=== PATIENT | male | born 1975 | race Caucasian/White ===

== ENCOUNTER → 2020-05-14 | Outpatient (CLI) | payer OTHER | END | disposition home or self-care (01) | LOC: LABWHC1 09:42 | PROVIDERS: ATTEND Emergency Medicine | DX: Z20.828 Contact with and (suspected) exposure to other viral communicable diseases (principal) | CPT/HCPCS: U0003; C9803 ==

== ENCOUNTER 2025-02-04 11:47 | Inpatient (IN) | payer BC, OTHER ==
--- NOTE | 2025-02-04 12:33 | ED ---
General Adult HPI - General Chief complaint: Psychiatric Symptoms Stated complaint: Petition/ Psych Eval Time Seen by Provider: 02/04/25 12:02 Source: patient, police, RN notes reviewed Mode of arrival: EMS Limitations: altered mental status - History of Present Illness Initial comments: Patient is a 49-year-old male present to the emergency department with concerns with change in mental status. Patient admits to sometimes using cocaine/methamphetamine but states he just uses a little bit. Patient was brought in with police custody. Patient has racing thoughts and is difficult to redirect. Patient has difficulty answering questions. Patient denies any complaints. No fever or recent illness. Patient denies any pain. - Related Data Home Medications Medication Instructions Recorded Confirmed Dextroamphetamine/Amphetamine 30 mg PO DAILY 08/17/14 08/17/14 [Adderall] Enalapril [Vasotec] 1 tab PO DAILY 08/17/14 08/17/14 atenoloL [Tenormin] 25 mg PO DAILY 08/17/14 08/17/14 hydroCHLOROthiazide [Hydrodiuril] 1 tab PO DAILY 08/17/14 08/17/14 Previous Rx's Medication Instructions Recorded HYDROcodone/APAP 5-325MG [[place] 1 each PO Q6HR PRN #6 tab 08/17/14 5-325] Ibuprofen [Motrin] 600 mg PO Q6HR PRN #20 tab 08/17/14 diazePAM [Valium] 5 mg PO BID #6 tab 08/17/14 Allergies Allergy/AdvReac Type Severity Reaction Status Date / Time No Known Allergies Allergy Verified 02/04/25 11:59 Review of Systems ROS Statement: Those systems with pertinent positive or pertinent negative responses have been documented in the HPI. ROS Other: All systems not noted in ROS Statement are negative. Constitutional: Denies: fever Eyes: Denies: eye pain ENT: Denies: ear pain Respiratory: Denies: dyspnea Cardiovascular: Denies: chest pain Neurological: Denies: headache Psychiatric: Reports: as per HPI. Denies: homicidal thoughts, suicidal thoughts Past Medical History Past Medical History: Hypertension History of Any Multi-Drug Resistant Organisms: None Reported Past Surgical History: Hernia Repair, Orthopedic Surgery Additional Past Surgical History / Comment(s): finger Past Psychological History: ADD/ADHD, Bipolar Smoking Status: Current every day smoker Past Alcohol Use History: Rare Past Drug Use History: Methamphetamine General Exam Limitations: no limitations General appearance: alert Head exam: Present: normocephalic, other (Mild soft tissue swelling to the forehead) Eye exam: Present: normal appearance, PERRL, EOMI. Absent: nystagmus Neck exam: Present: normal inspection. Absent: tenderness Respiratory exam: Present: normal lung sounds bilaterally Cardiovascular Exam: Present: regular rate, normal rhythm GI/Abdominal exam: Present: soft. Absent: tenderness Extremities exam: Present: normal inspection, full ROM. Absent: tenderness Neurological exam: Present: alert, CN II-XII intact. Absent: motor sensory deficit Expanded Motor strength exam: RUE: 5, LUE: 5, RLE: 5, LLE: 5 Psychiatric exam: Present: agitated Expanded Focused psych exam: Present: restlessness, flight of ideas Skin exam: Present: normal color Course Vital Signs 02/04/25 02/04/25 02/04/25 11:51 12:46 19:24 Temperature 99.1 F 98.1 F Pulse Rate 127 H 123 H 97 Respiratory 22 Rate Blood Pressure 183/109 O2 Sat by Pulse 98 100 Oximetry Procedures - Restraint - Face to Face Restraint Occurrence 1 Patient's Immediate Situation: Endangers self safety, Endangers others' safety, Endangers staff safety Patient's Reaction to the Intervention: Uncooperative Patient's Medical & Behavioral Condition: Awake, Alert Need to Continue or Terminate Restraint or Seclusion: Continue Face to Face Eval of Restraint Date: 02/04/25 Face to Face Eval of Restraint Time: 12:33 Medical Decision Making - Medical Decision Making Was pt. sent in by a medical professional or institution (, PA, SUPERVISOR [employer], urgent care, hospital, or long term...) When possible be specific @ -No Did you speak to anyone other than the patient for history (EMS, parent, family, police, friend...)? What history was obtained from this source @ -No Did you review nursing and triage notes (agree or disagree)? Why? @ -I reviewed and agree with nursing and triage notes Were old charts reviewed (outside hosp., previous admission, EMS record, old EKG, old radiological studies, urgent care reports/EKG's, long term records)? Report findings @ -No old charts were reviewed Differential Diagnosis (chest pain, altered mental status, abdominal pain women, abdominal pain men, vaginal bleeding, weakness, fever, dyspnea, syncope, headache, dizziness, GI bleed, back pain, seizure, CVA, palpatations, mental health, musculoskeletal)? @ -Differential Mental Health Depression, anxiety, bipolar, psychosis, schizophrenia, borderline personality, situational depression, adjustment disorder, behavioral disorder, brain tumor, malingering, substance abuse, encephalopathy, medication reaction, dementia, hypothyroidism, degenerative neurologic disorder, lupus.... This is not meant to be all-inclusive list EKG interpreted by me (3pts min.). @ -As above X-rays interpreted by me (1pt min.). @ -None done CT interpreted by me (1pt min.). @ -CT brain does not reveal acute abnormality U/S interpreted by me (1pt. min.). @ -None done What testing was considered but not performed or refused? (CT, X-rays, U/S, labs)? Why? @ -None What meds were considered but not given or refused? Why? @ -None Did you discuss the management of the patient with other professionals (professionals i.e. , PA, SUPERVISOR [employer], lab, RT, psych nurse, social media designer, cattle dipper, teacher, ship's officer, rn case mgr)? Give summary @ -Case discussed with psychiatric nurse with plans for psychiatric admission Was smoking cessation discussed for >3mins.? @ -No Was critical care preformed (if so, how long)? @ -No Were there social determinants of health that impacted care today? How? (Homelessness, low income, unemployed, alcoholism, drug addiction, transportation, low edu. Level, literacy, decrease access to med. care, [facility], rehab)? @ -No Was there de-escalation of care discussed even if they declined (Discuss DNR or withdrawal of care, Hospice)? DNR status @ -No What co-morbidities impacted this encounter? (DM, HTN, Smoking, COPD, CAD, Cancer, CVA, ARF, Chemo, Hep., AIDS, mental health diagnosis, sleep apnea, morbid obesity)? @ -None Was patient admitted / discharged? Hospital course, mention meds given and route , prescriptions, significant lab abnormalities, going to OR and other pertinent info. @ -Patient presents with flight of ideas and tico and hyperreligious. Patient seen by mental health services with plans for admission. Positive clinical certificate completed. Undiagnosed new problem with uncertain prognosis? @ -No Drug Therapy requiring intensive monitoring for toxicity (Heparin, Nitro, Ins ulin, Cardizem)? @ -No Were any procedures done? @ -No Diagnosis/symptom? @ -Psychosis Acute, or Chronic, or Acute on Chronic? @ -Acute Uncomplicated (without systemic symptoms) or Complicated (systemic symptoms)? @ -Default Side effects of treatment? @ -No Exacerbation, Progression, or Severe Exacerbation? @ -No Poses a threat to life or bodily function? How? (Chest pain, USA, GA, pneumonia, PE, COPD, DKA, ARF, appy, cholecystitis, CVA, Diverticulitis, Homicidal, Suicidal, threat to staff... and all critical care pts) @ -No - Lab Data Result diagrams: 02/04/25 12:44 02/04/25 12:44 Lab Results 02/04/25 02/04/25 Range/Units 12:44 12:44 WBC 7.51 (4.50-10.00) 10*3/uL RBC 5.10 (4.40-5.60) 10*6/uL Hgb 16.8 (13.0-17.0) g/dL Hct 46.8 (39.6-50.0) % MCV 91.8 (80.0-97.0) fL MCH 32.9 H (27.0-32.0) pg MCHC 35.9 (32.0-37.0) g/dL Plt Count 191 (140-440) 10*3/uL MPV 9.7 (9.5-12.2) fL Immature Gran % (Auto) 0.3 % Neutrophils % 68.0 % Lymphocytes % 22.2 % Monocytes % 5.9 % Eosinophils % 2.8 % Basophils % 0.8 % Immature Gran # 0.02 (0.00-0.04) 10*3/uL Neutrophils # 5.11 (1.80-7.70) 10*3/uL Lymphocytes # 1.67 (0.90-5.00) 10*3/uL Monocytes # 0.44 (0.20-1.00) 10*3/uL Eosinophils # 0.21 (0.04-0.35) 10*3/uL Basophils # 0.06 (0.00-0.10) 10*3/uL Sodium 138 (137-145) mmol/L Potassium 4.0 (3.5-5.1) mmol/L Chloride 98 (98-107) mmol/L Carbon Dioxide 30 (22-30) mmol/L Anion Gap 10 mmol/L BUN 20 (9-20) mg/dL Creatinine 0.84 (0.66-1.25) mg/dL Est GFR (CKD-EPI)AfAm >90 (>60 ml/min/1.73 sqM) Est GFR (CKD-EPI)NonAf >90 (>60 ml/min/1.73 sqM) Glucose 140 H (74-99) mg/dL Calcium 9.6 (8.4-10.2) mg/dL Total Bilirubin 0.6 (0.2-1.3) mg/dL AST 40 (17-59) U/L ALT 23 (4-49) U/L Alkaline Phosphatase 113 (38-126) U/L Total Protein 7.2 (6.3-8.2) g/dL Albumin 4.3 (3.5-5.0) g/dL Serum Alcohol <10 mg/dL Disposition Clinical Impression: Psychosis Disposition: TRANSFER TO PSYCH HOSP/UNIT Is patient prescribed a controlled substance at d/c from ED?: No Referrals: Benjamin Arroyo DO [Primary Care Provider] - 1-2 days Time of Disposition: 19:28
[2025-02-04 12:51] LABS: Basophils # (A) 0.06 10*3/uL (0.00-0.10); Basophils % (A) 0.8 %; Eosinophils # (A) 0.21 10*3/uL (0.04-0.35); Eosinophils % (A) 2.8 %; HCT 46.8 % (39.6-50.0); HGB 16.8 g/dL (13.0-17.0); Lymphocytes # (A) 1.67 10*3/uL (0.90-5.00); Lymphocytes % (A) 22.2 %; MCH 32.9 pg (27.0-32.0); MCHC 35.9 g/dL (32.0-37.0); MCV 91.8 fL (80.0-97.0); Monocytes # (A) 0.44 10*3/uL (0.20-1.00); Monocytes % (A) 5.9 %; Neutrophils # (A) 5.11 10*3/uL (1.80-7.70); Neutrophils % (A) 68.0 %; Platelet Count 191 10*3/uL (140-440); RBC 5.10 10*6/uL (4.40-5.60); RDW 12.2 % (11.5-14.5); WBC 7.51 10*3/uL (4.50-10.00)
[2025-02-04 13:11] LABS: ALT 23 U/L (4-49); AST 40 U/L (17-59); African American GFR (CKD) >90 (>60 ml/min/1.73 sqM); Albumin 4.3 g/dL (3.5-5.0); Alkaline Phosphatase 113 U/L (38-126); Anion Gap 10 mmol/L; Blood Urea Nitrogen 20 mg/dL (9-20); Calcium 9.6 mg/dL (8.4-10.2); Carbon Dioxide 30 mmol/L (22-30); Chloride 98 mmol/L (98-107); Glucose 140 mg/dL (74-99); Non-African American GFR(CKD) >90 (>60 ml/min/1.73 sqM); Potassium 4.0 mmol/L (3.5-5.1); Sodium 138 mmol/L (137-145); Total Protein 7.2 g/dL (6.3-8.2)
--- NOTE | 2025-02-04 13:14 | XR ---
EXAMINATION TYPE: XR chest 1V portable DATE OF EXAM: 02/04/2025 COMPARISON: NONE CLINICAL INDICATION: Male, 49 years old with history of agitation; TECHNIQUE: Single frontal view of the chest is obtained. FINDINGS: There is no focal air space opacity, pleural effusion, or pneumothorax seen. The cardiac silhouette size is within normal limits. The osseous structures are intact. IMPRESSION: No acute process. [facility], Workstation: [id number] 02/04/2025 1:11 PM
[2025-02-04] MEDS: LORazepam 1 MG/0.5 ML VIAL IV STA ×2 (13:30→19:22)
--- NOTE | 2025-02-04 16:01 | CT ---
EXAMINATION TYPE: CT brain wo con DATE OF EXAM: 02/04/2025 3:39 PM COMPARISON: 08/16/2014.. CLINICAL INDICATION: Male, 49 years old with history of altered, altered mental status TECHNIQUE: Brain: Axial CT images of the brain were obtained with coronal and sagittal reformats created and rev iewed. Contrast used: None. Oral contrast used: None. CT DLP: 1229.4 mGycm, Automated exposure control for dose reduction was used. FINDINGS: Brain: Extra-axial spaces: No abnormal extra-axial fluid collections. Ventricular system: Within normal limits Cerebral parenchyma: No acute intraparenchymal hemorrhage or mass effect. The edmond-white junction is well differentiated. Cerebellum: Unremarkable. Mass effect: No evidence of midline shift. Intracranial vasculature: unremarkable Soft tissues: Normal. Calvarium/osseous structures: No depressed skull fracture. Paranasal sinuses and mastoid air cells: Mild scattered paranasal sinus disease. Visualized orbits: Orbital contents are intact. IMPRESSION: No acute intracranial process. [facility], , 02/04/2025 3:59 PM
[2025-02-04] MEDS: NICOTINE 14MG/24HR PATCH TRANSDERM STA (18:58)
[2025-02-04] MEDS: HALOPERIDOL LACTATE 5 MG/ML 1 ML VIAL IM STA (19:23)
[2025-02-04] MEDS ORDERED: LORazepam 1 MG TAB PO PRN (22:11)
[2025-02-04] MEDS ORDERED: MAGNESIUM HYDROXIDE 2,400 MG/30 ML CUP PO PRN (22:11)
[2025-02-04] MEDS ORDERED: ACETAMINOPHEN TAB 325 MG TAB PO PRN (22:11)
[2025-02-04] MEDS ORDERED: LORazepam 1 MG/0.5 ML VIAL IM PRN (22:11)
[2025-02-04] MEDS ORDERED: HALOPERIDOL LACTATE 5 MG/ML 1 ML VIAL IM PRN (22:11)
[2025-02-04] MEDS ORDERED: MAG HYDROX/AL HYDROX/SIMETH 355 ML BOTTLE PO PRN (22:11)
[2025-02-04] MEDS ORDERED: IBUPROFEN 600 MG TAB PO PRN (22:11)
[2025-02-04] MEDS ORDERED: diphenhydrAMINE 50 MG/ML 1 ML VIAL IM PRN (22:13)
[2025-02-05 08:10] LABS: Cholesterol 146.00 mg/dL (0.00-200.00); HDL Cholesterol 45.00 mg/dL (40.00-60.00); LDL Cholesterol,Calculated 84.8 mg/dL (0.0-131.0); Triglycerides 81.20 mg/dL (0.00-149.00); VLDL Calculation 16.24 mg/dL (5.00-40.00)
[2025-02-05] MEDS: NICOTINE 14MG/24HR PATCH TRANSDERM SCH (12:40)
[2025-02-05] MEDS: ARIPiprazole 5 MG TAB PO SCH (12:40)
[2025-02-05 13:00] VITALS: RESP 18
--- NOTE | 2025-02-05 13:25 | P.HP ---
Psychiatric H&P - . H&P Date: 02/05/25 History & Physical: Allergies Allergy/AdvReac Type Severity Reaction Status Date / Time hydromorphone from Dilaudid Allergy Unknown Verified 02/04/25 21:12 Vital Signs Temp 98.1 F 02/04/25 12:46 Pulse 84 02/04/25 23:35 Resp 15 02/04/25 23:35 BP 151/90 02/04/25 23:35 Pulse Ox 98 02/04/25 23:35 FiO2 Intake & Output 02/04/25 02/05/25 02/05/25 18:59 06:59 18:59 Weight 68.039 kg Laboratory Last Values WBC 7.51 10*3/uL (4.50-10.00) 02/04/25 12:44 RBC 5.10 10*6/uL (4.40-5.60) 02/04/25 12:44 Hgb 16.8 g/dL (13.0-17.0) 02/04/25 12:44 Hct 46.8 % (39.6-50.0) 02/04/25 12:44 MCV 91.8 fL (80.0-97.0) 02/04/25 12:44 MCH 32.9 pg (27.0-32.0) H 02/04/25 12:44 MCHC 35.9 g/dL (32.0-37.0) 02/04/25 12:44 Plt Count 191 10*3/uL (140-440) 02/04/25 12:44 MPV 9.7 fL (9.5-12.2) 02/04/25 12:44 Immature Gran % (Auto) 0.3 % 02/04/25 12:44 Neutrophils % 68.0 % 02/04/25 12:44 Lymphocytes % 22.2 % 02/04/25 12:44 Monocytes % 5.9 % 02/04/25 12:44 Eosinophils % 2.8 % 02/04/25 12:44 Basophils % 0.8 % 02/04/25 12:44 Immature Gran # 0.02 10*3/uL (0.00-0.04) 02/04/25 12:44 Neutrophils # 5.11 10*3/uL (1.80-7.70) 02/04/25 12:44 Lymphocytes # 1.67 10*3/uL (0.90-5.00) 02/04/25 12:44 Monocytes # 0.44 10*3/uL (0.20-1.00) 02/04/25 12:44 Eosinophils # 0.21 10*3/uL (0.04-0.35) 02/04/25 12:44 Basophils # 0.06 10*3/uL (0.00-0.10) 02/04/25 12:44 Sodium 138 mmol/L (137-145) 02/04/25 12:44 Potassium 4.0 mmol/L (3.5-5.1) 02/04/25 12:44 Chloride 98 mmol/L (98-107) 02/04/25 12:44 Carbon Dioxide 30 mmol/L (22-30) 02/04/25 12:44 Anion Gap 10 mmol/L 02/04/25 12:44 BUN 20 mg/dL (9-20) 02/04/25 12:44 Creatinine 0.84 mg/dL (0.66-1.25) 02/04/25 12:44 Est GFR (CKD-EPI)AfAm >90 (>60 ml/min/1.73 sqM) 02/04/25 12:44 Est GFR (CKD-EPI)NonAf >90 (>60 ml/min/1.73 sqM) 02/04/25 12:44 Glucose 140 mg/dL (74-99) H 02/04/25 12:[address] Glu mg/dL 120 mg/dL 02/04/25 12:44 Hemoglobin A1c 5.8 % (<=6.0) 02/04/25 12:44 Calcium 9.6 mg/dL (8.4-10.2) 02/04/25 12:44 Total Bilirubin 0.6 mg/dL (0.2-1.3) 02/04/25 12:44 AST 40 U/L (17-59) 02/04/25 12:44 ALT 23 U/L (4-49) 02/04/25 12:44 Alkaline Phosphatase 113 U/L (38-126) 02/04/25 12:44 Total Protein 7.2 g/dL (6.3-8.2) 02/04/25 12:44 Albumin 4.3 g/dL (3.5-5.0) 02/04/25 12:44 Triglycerides 81.20 mg/dL (0.00-149.00) 02/04/25 12:44 Cholesterol 146.00 mg/dL (0.00-200.00) 02/04/25 12:44 LDL Cholesterol, Calc 84.8 mg/dL (0.0-131.0) 02/04/25 12:44 VLDL Cholesterol, Calc 16.24 mg/dL (5.00-40.00) 02/04/25 12:44 HDL Cholesterol 45.00 mg/dL (40.00-60.00) 02/04/25 12:44 Cholesterol/HDL Ratio 3.24 Ratio 02/04/25 12:44 TSH 1.630 UIU/ML (0.350-5.500) 02/04/25 12:44 Serum Alcohol <10 mg/dL 02/04/25 12:44 SARS-CoV-2 (PCR) Not Detected (Not Detectd) 02/04/25 20:40 02/05/25 12:22 IDENTIFYING DATA: Patient is a 49-year-old male, he is he lives with his in a trailer, he has 5 kids, is unemployed HPI: Patient presented to the hospital on a petition filled out by , according to EPS note "Patient presented with PD and petition from related to manic and bizarre behavior. Patient assessed in ER12 from [id number]. Patient observed to be disheveled and unkept, pacing around hospital room, and agreeable to speak to manual writer. Patient appears with fair eye contact, tangential speech, nonsensical with loose associations. Patient talks about going to a republican and states "You know the republican I don't have to tell you about the republican" and "The electrician substation supervisor realized that you've been doing the paperwork wrong wood handler dumped me here I don't know why you guys didn't catch on". Patient requires frequent redirection and cannot follow thought pattern. Patient admits to meth and crack use yesterday. Patient per /petition has history of bipolar disorder and has been noncompliant with treatment and medications. Per petition, patient continues to tell others god told him to hurt people, he believes his employer is having sex parties, and he has been witnessed smoking meth which makes him more paranoid. Also notes patient has been making threats to family and neighbors. Patient denies all symptoms and has poor insight into condition and need for treatment at this time. " Patient was seen today for psychiatric assessment. He appeared to have poor eye contact, was rambling at times illogical loose associations. Patient was endorsing paranoid thoughts about his and also his workplace and was fairly vague about it. States that he has been having trouble at work, spoke about his "talking to other people" and him not trusting her. States that everything she wrote on the petition was alive. Claims that she has been "playing games". Denies any depression or anxiety at this time. Has poor insight and poor judgment. Poor hygiene and grooming. Patient denies any suicidal or homicidal ideations intent or plan. At this time patient denies any auditory or visual hallucinations. Claims that his sleep and appetite are fair at this time. Patient admits to using methamphetamine, was minimizing his use, claims that he also smokes cigarettes and smokes marijuana. PAST PSYCHIATRIC HISTORY: Patient has a history of bipolar disorder. Patient denies being on any psychiatric medications. Patient denies any previous psychiatric hospitalizations. Patient denies any psychiatric outpatient follow- up. Patient denies any history of suicide attempts in the past. PMH: as per ER note ALLERGIES: as per EMR CHEMICAL DEPENDENCY HISTORY: as per HPI FAMILY PSYCHIATRIC/SUBSTANCE USE HISTORY: Claims that his sister has some form of mental illness SOCIAL HISTORY: Patient was born and raised in [facility]. Claims that he completed his GED finished school. Claims that he was arrested went to assisted charged with breaking and entering at the age of 16. MENTAL STATUS EXAM: General Appearance: Patient appears to be thin, several tattoos, short hair, stated age is alert, bizarre at times. Patient appears to have poor hygiene and grooming. Behavior: Patient is seated without any agitated behavior. Bizarre, rambling Speech: Patient's speech is fluent and nonpressured. Rambling, nonsensical at times Mood/Affect: Patient reports their mood is "okay", affect is congruent and constricted. Suicidality/Homicidality: Patient denies having any homicidal ideation intent or plan. Denies any suicidal ideations intent or plan Perceptions: Patient denies any visual hallucinations and denies any auditory hallucinations Though content/process: Minimizing drug use and need to be in the hospital, bizarre disorganized illogical loose associations. Memory and concentration: AOX3, grossly intact for the purposes of this session. Can spell "WORLD" backwards Judgment and insight: Poor STRENGTHS/WEAKNESSES: strength is that patient is resilient. Weakness is that patient has poor judgment and is impulsive INTELLECT: Average IMPRESSIONS: Psychosis unspecified Methamphetamine use disorder Cannabis use disorder History of bipolar disorder Nicotine dependence PLAN: -Patient is admitted under involuntary status to [facility]HU for stabilization of psychiatric symptoms and safety. Patient has not signed adult voluntary form and has not signed medication consent and is placed in patient's chart. A second certification was completed and along with petition will be filed for court. -Medications : Abilify 5 mg daily for mood stabilization/psychosis. Trazodone 50 mg nightly for insomnia/mood. -Ativan and Haldol PRN for agitation/aggression Patient states they do not want rehab and wish to cut back subtance use on their own -Patient was informed of the risks, benefits and side effects of the medications. Patient did not signed med consent form and was placed in chart. Patient was offered medication information and declined it -Internal Medicine consult to perform medical evaluation and physical. -NRT -nicotine patch -SW on board for discharge planning. Encourage patient to participate in groups to work on coping skills. Will await deferral and court date. 02/05/25 13:20
--- NOTE | 2025-02-05 19:06 | P.MDCNMH ---
History of Present Illness H&P Date: 02/05/25 This is a 49-year-old male who presented to the emergency department with police being petitioned for aggressive behavior and having admitted to drug use. Patient on exam is awake, alert and oriented x 3 cooperative with staff and awaiting to see the psychiatrist. Patient denies any chest pain or shortness of breath and admits to using marijuana and reports to smoking approximately 2 packs/day. On exam patient did have nicotine patch on the right arm. Patient denies any significant past medical history other than high blood pressure which he reports he does not take any medication for. In the medical record there is history of ADD/ADHD and bipolar disorder. Patient admits his primary care provider is Dr. Arroyo but he has not seen her in quite some time and does not regularly go to the doctor. Patient did have chest x-ray done which shows no acute process, CT brain shows no acute intracranial process, and basic labs reviewed reveal a white count of 7.51, hemoglobin 16.8, platelets 191, sodium 138, potassium 4.0, BUN 20, creatinine 0.84, hemoglobin A1c is 5.8, cholesterol panel within normal limits, TSH 1.6, alcohol level was less than 10 and COVID testing was negative. Patient was admitted as mentioned previously on petition for psychosis to [facility] for mental health evaluation. REVIEW OF SYSTEMS: CONSTITUTIONAL: No fever, no malaise, no fatigue. HEENT: No recent visual problems or hearing problems. Denied any sore throat. CARDIOVASCULAR: No chest pain, orthopnea, PND, no palpitations, no syncope. PULMONARY: No shortness of breath, no cough, no hemoptysis. GASTROINTESTINAL: No diarrhea, no nausea, no vomiting, no abdominal pain. NEUROLOGICAL: No headaches, no weakness, no numbness. HEMATOLOGICAL: Denies any bleeding or petechiae. GENITOURINARY: Denies any burning micturition, frequency, or urgency. MUSCULOSKELETAL/RHEUMATOLOGICAL: Denies any joint pain, swelling, or any muscle pain. ENDOCRINE: Denies any polyuria or polydipsia. The rest of the 14-point review of systems is negative. PHYSICAL EXAMINATION: GENERAL: The patient is alert and oriented x3, not in any acute distress. Well developed, thin built HEENT: Pupils are round and equally reacting to light. EOMI. No scleral icterus. No conjunctival pallor. Normocephalic, atraumatic. No pharyngeal erythema. No thyromegaly. CARDIOVASCULAR: S1 and S2 present. No murmurs, rubs, or gallops. PULMONARY: Chest is clear to auscultation, no wheezing or crackles. ABDOMEN: Soft, thin, nontender, nondistended, normoactive bowel sounds. No palpable organomegaly. MUSCULOSKELETAL: No joint swelling or deformity. EXTREMITIES: No cyanosis, clubbing, or pedal edema. NEUROLOGICAL: Gross neurological examination did not reveal any focal deficits. SKIN: No rashes. Multiple tattoos noted Assessment: Acute psychosis, on police petition for psychiatric evaluation Continued ongoing nicotine abuse, reports to smoking 2 packs/day History of hypertension, not on medications Noncompliance History of ADD/ADHD/bipolar History of polysubstance abuse including methamphetamine Full code Plan: Patient was petitioned by the police to [address] [facility] [address]. On exam patient is awake, alert and oriented x 3 having conversation with multiple hospital staff in the room awaiting to see psychiatrist Blood pressure remains elevated and will add amlodipine starting at 5 mg and may adjust to 10 mg if blood pressure remains elevated Patient encouraged to attend group therapy sessions and compliance with medication and psychiatry evaluation Encouraged increase activity as tolerated Patient has nicotine patch as patient reports to smoking twice daily, tobacco cessation discussed Thank you kindly for this consultation. Please do not hesitate to contact medicine with questions or concerns The impression and plan of care has been dictated by Keira Carbone, Nurse Practitioner as directed. Dr. Natty MD I have performed a history and examination and MDM of this patient, discussed the same with the dictator, and agree with the dictator's assessment and plan as written ,documented as a scribe. Based on total visit time, I have performed more than 50% of the visit. Past Medical History Past Medical History: Hypertension History of Any Multi-Drug Resistant Organisms: None Reported Past Surgical History: Hernia Repair, Orthopedic Surgery Additional Past Surgical History / Comment(s): finger Past Psychological History: ADD/ADHD, Bipolar Smoking Status: Current every day smoker Past Alcohol Use History: Rare Past Drug Use History: Methamphetamine Medications and Allergies Home Medications Medication Instructions Recorded Confirmed Type No Known Home Medications 02/04/25 02/04/25 History Allergies Allergy/AdvReac Type Severity Reaction Status Date / Time hydromorphone [From Dilaudid] Allergy Unknown Verified 02/04/25 21:12 Physical Exam Vitals: Vital Signs Temp Pulse Pulse Resp BP BP Pulse Ox 02/04/25 23:35 84 15 151/90 98 02/04/25 21:19 74 16 180/85 96 02/04/25 19:24 97 100 02/04/25 12:46 98.1 F 123 H 02/04/25 11:51 99.1 F 127 H 22 183/109 98 Cranial Nerve Examination - Cranial Nerves Cranial Nerve I- Olfactory: Intact Cranial Nerve II- Optic: Intact Cranial Nerve III- Oculomotor: Intact Cranial Nerve IV- Trochlear: Intact Cranial Nerve V- Trigeminal: Intact Cranial Nerve - Abducens: Intact Cranial Nerve VII- Facial: Intact Cranial Nerve VIII- Auditory: Intact Cranial Nerve IX- Glossopharyngeal: Intact Cranial Nerve X- Vagus: Intact Cranial Nerve XI- Accessory: Intact Cranial Nerve XII- Hypoglossal: Intact Results CBC & Chem 7: 02/04/25 12:44 02/04/25 12:44 Labs: Abnormal Lab Results - Last 24 Hours (Table) 02/04/25 02/04/25 Range/Units 12:44 12:44 MCH 32.9 H (27.0-32.0) pg Glucose 140 H (74-99) mg/dL
[2025-02-06] MEDS: PANTOPRAZOLE 40 MG TABLET PO SCH (10:39)
[2025-02-06] MEDS: amLODIPine 5 MG TAB PO SCH (10:39)
--- NOTE | 2025-02-06 11:47 | P.PN ---
Progress Note - Text Progress Note Date: 02/06/25 Interval history: Patient was seen today for psychiatric follow-up. Patient was laying in his bed today, claims that he is "catching up on rest". He did seem a bit calmer today and less hyperverbal and more directable. He was somewhat concrete. Claims that overall he is doing a bit better. Denies any anxiety at this time. States that he slept fairly last night. Not reporting any other side effects at all from the medications. Has not been going to groups mainly isolating. He signed a deferral with his shipping and receiving specialist today. Fair appetite. Denies any auditory or visual hallucinations denies any suicidal or homicidal ideations intent or plan. MENTAL STATUS EXAM: General Appearance: Patient appears to be thin, several tattoos, short hair, stated age is alert, bizarre at times. Patient appears to have mildly improving hygiene and grooming. Behavior: Patient is seated without any agitated behavior. More cooperative today, fairly concrete Speech: Patient's speech is fluent and nonpressured. [place] Mood/Affect: Patient reports their mood is "ok", affect is congruent and constr icted. Suicidality/Homicidality: Patient denies having any homicidal ideation intent or plan. Denies any suicidal ideations intent or plan Perceptions: Patient denies any visual hallucinations and denies any auditory hallucinations Though content/process: More logical today, fairly concrete poverty of content Memory and concentration: AOX3, grossly intact for the purposes of this session Judgment and insight: Poor, improving mildly IMPRESSIONS: Psychosis unspecified Methamphetamine use disorder Cannabis use disorder History of bipolar disorder Nicotine dependence PLAN: -Patient is admitted under involuntary status to MHU for stabilization of psychiatric symptoms and safety. Patient has not signed adult voluntary form and has not signed medication consent and is placed in patient's chart. -Medications : Abilify 5 mg daily for mood stabilization/psychosis. Trazodone 50 mg nightly for insomnia/mood. -Ativan and Haldol PRN for agitation/aggression -NRT -nicotine patch -SW on board for discharge planning. Encourage patient to participate in groups to work on coping skills. Patient signed the deferral with his shipping and receiving specialist on 02/06.
[2025-02-06] MEDS: amLODIPine 5 MG TAB PO STA (12:55)
[2025-02-07] MEDS: amLODIPine 10 MG TAB PO SCH (08:43)
--- NOTE | 2025-02-07 10:52 | P.PN ---
Progress Note - Text Progress Note Date: 02/07/25 Interval history: Patient was seen today for psychiatric follow-up. Patient was seen up near the nurses desk. Appears to have improvement in hygiene and good mood today. He claims that he apologizes for coming in and being "delusional" and states that he has realizing this stuff that he was saying. He appears to be less paranoid today. Continues to speak oddly about the work environment and to how he was pressured in his work and also lost his job. He claims that he turned to "street drugs" after losing his job. That he has been talking with his on the phone regularly. Has not been going to many groups. Claims that he has been sleeping well tolerating medications well. He appeared to be fairly tearful at times during the interaction. Fair appetite. Denies any auditory or visual hallucinations denies any suicidal or homicidal ideations intent or plan. MENTAL STATUS EXAM: General Appearance: Patient appears to be thin, several tattoos, short hair, stated age is alert, more pleasant today. Patient appears to have mildly improving hygiene and grooming. Behavior: Patient is seated without any agitated behavior. More cooperative today, fairly concrete Speech: Patient's speech is fluent and nonpressured. Mood/Affect: Patient reports their mood is "a bit better", affect is congruent and tearful Suicidality/Homicidality: Patient denies having any homicidal ideation intent or plan. Denies any suicidal ideations intent or plan Perceptions: Patient denies any visual hallucinations and denies any auditory hallucinations Though content/process: More logical today, fairly concrete poverty of content Memory and concentration: AOX3, grossly intact for the purposes of this session Judgment and insight: Poor, improving mildly IMPRESSIONS: Psychosis unspecified Methamphetamine use disorder Cannabis use disorder History of bipolar disorder Nicotine dependence PLAN: -Patient is admitted under involuntary status to MHU for stabilization of psychiatric symptoms and safety. Patient has not signed adult voluntary form and has not signed medication consent and is placed in patient's chart. -Medications : Increase Abilify 7.5 mg daily for mood stabilization/psychosis. Trazodone 50 mg nightly for insomnia/mood. Added Zoloft 25 mg nightly for mood/anxiety -Ativan and Haldol PRN for agitation/aggression -NRT -nicotine patch -SW on board for discharge planning. Encourage patient to participate in groups to work on coping skills. Patient signed the deferral with his instructional assistant on 02/06. Hopeful for discharge tomorrow versus Wednesday if patient is improving. He is declining rehab at this time.
[2025-02-07] MEDS: SERTRALINE 25 MG TAB PO SCH (20:17)
[2025-02-08] MEDS: ARIPiprazole 15 MG TAB PO SCH (09:35)
[2025-02-08 09:38] VITALS: PULSE 112; TEMP 97.7
--- NOTE | 2025-02-08 11:28 | P.DS ---
Providers Date of admission: 02/04/25 22:08 Expected date of discharge: 02/08/25 Attending physician: Adiel Kate MD Consults: 02/05/25 20:30 Consult Physician Routine Consulting Provider: [facility] Hospitalists Consult Reason/Comments: History and Physical, New Admission Do you want consulting provider notified?: Yes Primary care physician: Benjamin Arroyo - Discharge Diagnosis(es) (1) Unspecified psychosis Current Visit: Yes Status: Acute Priority: High (2) Methamphetamine use disorder, moderate Current Visit: Yes Status: Acute Priority: High (3) Cannabis use disorder Current Visit: Yes Status: Acute Priority: Medium (4) Nicotine dependence Current Visit: Yes Status: Acute Priority: Low (5) History of bipolar disorder Current Visit: Yes Status: Acute Priority: Medium Hospital Course: Admission HPI: Admission note was completed by freelance writer"Patient is a 49-year-old male, he is he lives with his in a trailer, he has 5 kids, is unemployed. Patient presented to the hospital on a petition filled out by , according to EPS note "Patient presented with PD and petition from related to manic and bizarre behavior. Patient assessed in ER12 from [id number]. Patient observed to be disheveled and unkept, pacing around hospital room, and agreeable to speak to freelance writer. Patient appears with fair eye contact, tangential speech, nonsensical with loose associations. Patient talks about going to a alliance party and states "You know the alliance party I don't have to tell you about the alliance party" and "The diesel maintenance electrician realized that you've been doing the paperwork wrong breakfast and room attendant dumped me here I don't know why you guys didn't catch on". Patient requires frequent redirection and cannot follow thought pattern. Patient admits to meth and crack use yesterday. Patient per /petition has history of bipolar disorder and has been noncompliant with treatment and medications. Per petition, patient continues to tell others god told him to hurt people, he believes his employer is having sex parties, and he has been witnessed smoking meth which makes him more paranoid. Also notes patient has been making threats to family and neighbors. Patient denies all symptoms and has poor insight into condition and need for treatment at this time. " Patient was seen today for psychiatric assessment. He appeared to have poor eye contact, was rambling at times illogical loose associations. Patient was endorsing paranoid thoughts about his and also his workplace and was fairly vague about it. States that he has been having trouble at work, spoke about his "talking to other people" and him not trusting her. States that everything she wrote on the petition was alive. Claims that she has been "playing games". Denies any depression or anxiety at this time. Has poor insight and poor judgment. Poor hygiene and grooming. Patient denies any suicidal or homicidal ideations intent or plan. At this time patient denies any auditory or visual hallucinations. Claims that his sleep and appetite are fair at this time. Patient admits to using methamphetamine, was minimizing his use, claims that he also smokes cigarettes and smokes marijuana." Hospital course: Upon admission to the unit patient was admitted involuntarily on a petition and certificate and a second certificate was completed and faxed to the courts. Patient ended up signing a deferral with the research attorney and agreeing to treatment. Patient was initially bizarre, psychotic however with time and treatment patient got along well with other patients on the unit and followed unit protocol. Patient was compliant with the medications and denied any side effects throughout hospital course. Patient was started on Abilify increased to 7.5 mg daily for mood stabilization/psychosis, trazodone 50 mg nightly for insomnia/mood, Zoloft 25 mg nightly for mood/anxiety. Patient spoke of his stressors and engaged in therapy both group/activity therapy. Patient was also seen by medical team for history and physical exam. Throughout the course of the hospitalization patient gradually improved with regards to mood, anxiety, psychosis, sleep and became more future oriented with improved insight and judgment. On the day of discharge patient denied any suicidal or homicidal ideations intent or plan denied any auditory or visual hallucinations. Patient endorsed wanting to live for their health and family. The patient denied any access to guns or weapons. Patient denied any paranoia and did not endorse any delusions. Patient does have a significant history of substance abuse and was counseled on abstaining from all substances including alcohol and marijuana. Patient was offered however declined inpatient substance-abuse rehab. Patient elected to do outpatient substance use treatment program through their outpatient provider. Patient was also counseled on the medications and need for regular compliance and was encouraged to follow-up with their outpatient appointment for mental health and also for primary care. Prior to discharge a family meeting will be arranged by social science manager to answer any questions and ensure safety upon discharge incuding making sure that guns/weapons are either removed from the home or locked away. Mental status exam: General Appearance: Patient appears to be thin, several tattoos, short hair, stated age is alert, pleasant, and cooperative. Patient is in no acute distress and has improved hygiene and grooming Behavior: Patient is calmly seated without any agitated behavior. Speech: Patient's speech is fluent and nonpressured. Mood/Affect: Patient reports their mood is "better", affect is congruent and euthymic. Suicidality/Homicidality: Patient denies having any suicidal or homicidal ideation intent or plan. Perceptions: Patient denies any auditory or visual hallucinations. Though content/process: There is no evidence of any delusional thought content and thought process is linear and goal-directed. More future oriented Memory and concentration: AOX3, grossly intact for the purposes of this session. Can spell "WORLD" backwards correctly. Judgment and insight: Chronically poor, however has improved with guarded prognosis Impression: Psychosis unspecified Methamphetamine use disorder Cannabis use disorder History of bipolar disorder Nicotine dependence Plan: -Continue with discharge today as patient has improved and stabilized psychiatrically and is not currently an imminent threat to themself and/or others. Patient will remain at chronically elevated risk for harm to self and/or others due to their impulsivity and substance abuse. -Continue medications: Abilify p.o. 7.5 mg daily for mood stabilization/psychos is, trazodone 50 mg nightly for insomnia/mood, Zoloft 25 mg nightly for mood/anxiety. -Patient was counseled on the need for medication compliance and appropriate follow-up at mental health and also primary care for medical issues. Patient verbalized understanding and agreed. -Social work to arrange for and conduct family meeting to ensure safety upon discharge and answer any questions/concerns. also to ensure safe home environment that guns/weapons are either removed from the home or locked away. Social work also to arrange for patients follow up appointments with [facility] for psychiatric care along with follow up with primary care provider. -Patient counseled on abstaining from recreational drugs and marijuana and alcohol. Was informed/educated on the adverse effects on their physical and me ntal health. Patient verbally agreed and understood. Patient was offered substance abuse treatment however declined at this time. -Patient was instructed to return to the hospital or seek immediate medical care if their psychiatric or medical symptoms do worsen or reoccur. Allergies Allergy/AdvReac Type Severity Reaction Status Date / Time hydromorphone [From Dilaudid] Allergy Unknown Verified 02/04/25 21:12 Laboratory Results WBC 7.51 10*3/uL (4.50-10.00) 02/04/25 12:44 RBC 5.10 10*6/uL (4.40-5.60) 02/04/25 12:44 Hgb 16.8 g/dL (13.0-17.0) 02/04/25 12:44 Hct 46.8 % (39.6-50.0) 02/04/25 12:44 MCV 91.8 fL (80.0-97.0) 02/04/25 12:44 MCH 32.9 pg (27.0-32.0) H 02/04/25 12:44 MCHC 35.9 g/dL (32.0-37.0) 02/04/25 12:44 Plt Count 191 10*3/uL (140-440) 02/04/25 12:44 MPV 9.7 fL (9.5-12.2) 02/04/25 12:44 Immature Gran % (Auto) 0.3 % 02/04/25 12:44 Neutrophils % 68.0 % 02/04/25 12:44 Lymphocytes % 22.2 % 02/04/25 12:44 Monocytes % 5.9 % 02/04/25 12:44 Eosinophils % 2.8 % 02/04/25 12:44 Basophils % 0.8 % 02/04/25 12:44 Immature Gran # 0.02 10*3/uL (0.00-0.04) 02/04/25 12:44 Neutrophils # 5.11 10*3/uL (1.80-7.70) 02/04/25 12:44 Lymphocytes # 1.67 10*3/uL (0.90-5.00) 02/04/25 12:44 Monocytes # 0.44 10*3/uL (0.20-1.00) 02/04/25 12:44 Eosinophils # 0.21 10*3/uL (0.04-0.35) 02/04/25 12:44 Basophils # 0.06 10*3/uL (0.00-0.10) 02/04/25 12:44 Sodium 138 mmol/L (137-145) 02/04/25 12:44 Potassium 4.0 mmol/L (3.5-5.1) 02/04/25 12:44 Chloride 98 mmol/L (98-107) 02/04/25 12:44 Carbon Dioxide 30 mmol/L (22-30) 02/04/25 12:44 Anion Gap 10 mmol/L 02/04/25 12:44 BUN 20 mg/dL (9-20) 02/04/25 12:44 Creatinine 0.84 mg/dL (0.66-1.25) 02/04/25 12:44 Est GFR (CKD-EPI)AfAm >90 (>60 ml/min/1.73 sqM) 02/04/25 12:44 Est GFR (CKD-EPI)NonAf >90 (>60 ml/min/1.73 sqM) 02/04/25 12:44 Glucose 140 mg/dL (74-99) H 02/04/25 12:[address] Glu mg/dL 120 mg/dL 02/04/25 12:44 Hemoglobin A1c 5.8 % (<=6.0) 02/04/25 12:44 Calcium 9.6 mg/dL (8.4-10.2) 02/04/25 12:44 Total Bilirubin 0.6 mg/dL (0.2-1.3) 02/04/25 12:44 AST 40 U/L (17-59) 02/04/25 12:44 ALT 23 U/L (4-49) 02/04/25 12:44 Alkaline Phosphatase 113 U/L (38-126) 02/04/25 12:44 Troponin I <0.012 ng/mL (0.000-0.034) 02/06/25 20:48 Total Protein 7.2 g/dL (6.3-8.2) 02/04/25 12:44 Albumin 4.3 g/dL (3.5-5.0) 02/04/25 12:44 Triglycerides 81.20 mg/dL (0.00-149.00) 02/04/25 12:44 Cholesterol 146.00 mg/dL (0.00-200.00) 02/04/25 12:44 LDL Cholesterol, Calc 84.8 mg/dL (0.0-131.0) 02/04/25 12:44 VLDL Cholesterol, Calc 16.24 mg/dL (5.00-40.00) 02/04/25 12:44 HDL Cholesterol 45.00 mg/dL (40.00-60.00) 02/04/25 12:44 Cholesterol/HDL Ratio 3.24 Ratio 02/04/25 12:44 TSH 1.630 UIU/ML (0.350-5.500) 02/04/25 12:44 Serum Alcohol <10 mg/dL 02/04/25 12:44 SARS-CoV-2 (PCR) Not Detected (Not Detectd) 02/04/25 20:40 Vital Signs Temp 97.7 F 02/08/25 09:37 Pulse 112 H 02/08/25 09:37 Resp 18 02/08/25 09:37 BP 160/106 02/08/25 10:40 Pulse Ox 98 02/07/25 21:46 FiO2 Intake & Output 02/07/25 02/08/25 02/08/25 18:59 06:59 18:59 Weight 68.039 kg Patient Condition at Discharge: Stable Plan - Discharge Summary Discharge Rx Participant: No New Discharge Prescriptions: New ARIPiprazole [Abilify] 7.5 mg PO DAILY 30 Days #15 tablet traZODone HCL [Desyrel] 50 mg PO HS 30 Days #30 tab Nicotine 14Mg/24Hr Patch [Habitrol] 1 patch TRANSDERM DAILY 14 Days #14 patch hydrALAZINE HCL [Apresoline] 25 mg PO TID 30 Days #90 tab amLODIPine [Norvasc] 10 mg PO DAILY 30 Days #30 tab Pantoprazole [Protonix] 40 mg PO AC-BRKFST 30 Days #30 tab Sertraline [Zoloft] 25 mg PO HS 30 Days #30 tab Discharge Medication List ARIPiprazole [Abilify] 7.5 mg PO DAILY 30 Days #15 tablet 02/08/25 [Rx] Nicotine 14Mg/24Hr Patch [Habitrol] 1 patch TRANSDERM DAILY 14 Days #14 patch 07/17/25 [Rx] Pantoprazole [Protonix] 40 mg PO AC-BRKFST 30 Days #30 tab 02/08/25 [Rx] Sertraline [Zoloft] 25 mg PO HS 30 Days #30 tab 02/08/25 [Rx] amLODIPine [Norvasc] 10 mg PO DAILY 30 Days #30 tab 02/08/25 [Rx] hydrALAZINE HCL [Apresoline] 25 mg PO TID 30 Days #90 tab 02/08/25 [Rx] traZODone HCL [Desyrel] 50 mg PO HS 30 Days #30 tab 02/08/25 [Rx] Follow up Appointment(s)/Referral(s): Benjamin Arroyo DO [Primary Care Provider] - 1-2 days Activity/Diet/Wound Care/Special Instructions: [facility] Discharge Info Avoid the use of street drugs and alcohol. Take all medications as prescribed. When you are in need of refills on your medications, please contact your outpatient medical provider and/or outpatient psychiatrist. Please go to your scheduled outpatient appointments for aftercare treatment. If symptoms return or become worse, call the crisis line at or and/or visit the nearest emergency room for assistance. National Suicide and Crisis Lifeline - call or text 268. Discharge Disposition: HOME SELF-CARE
[2025-02-08 13:46] VITALS: BP 166/106
== END 2025-02-08 13:53 | disposition home or self-care (01) | DRG 885 ==
LOC: EC 11:47 → 3MHU 22:08
PROVIDERS: ADMIT Psychiatry & Neurology Psychiatry; ATTEND Psychiatry & Neurology Psychiatry
DX: F29 Unspecified psychosis not due to a substance or known physiological condition (principal); Z91.148 Patient's other noncompliance with medication regimen for other reason; F12.10 Cannabis abuse, uncomplicated; F31.9 Bipolar disorder, unspecified; I10 Essential (primary) hypertension; F15.20 Other stimulant dependence, uncomplicated; F90.9 Attention-deficit hyperactivity disorder, unspecified type; R45.1 Restlessness and agitation; R03.0 Elevated blood-pressure reading, without diagnosis of hypertension; F17.210 Nicotine dependence, cigarettes, uncomplicated; F41.9 Anxiety disorder, unspecified; G47.00 Insomnia, unspecified; Z56.0 Unemployment, unspecified; Z79.899 Other long term (current) drug therapy; Z11.52 Encounter for screening for COVID-19; Z71.89 Other specified counseling; Z28.310 Unvaccinated for COVID-19; Z88.5 Allergy status to narcotic agent
CPT/HCPCS: 36415; 70450; 71045; 80053; 80061; 80320; 83036; 84443; 84484; 85025; 87635; 96372; 96374; 96376; 99285